=== PATIENT | male | born 1945 | race Caucasian/White ===

== ENCOUNTER 2022-11-03 09:31 | Outpatient (CLI) | payer MEDICARE ==
[~2022-11-03 09:31] MED LIST: Iopamidol 300 61% 100 ML VIAL FS ONE
== END 2022-11-03 09:32 | disposition home or self-care (01) ==
LOC: CSHCT 09:31
PROVIDERS: ATTEND Family Medicine
DX: R05.3 Chronic cough (principal); R91.8 Other nonspecific abnormal finding of lung field
CPT/HCPCS: 71260; 82565; Q9967

== ENCOUNTER 2023-03-02 09:21 | Outpatient (CLI) | payer MEDICARE ==
[2023-03-02] MEDS ORDERED: Iopamidol 300 61% 100 ML VIAL FS ONE (13:45)
== END 2023-03-02 09:22 | disposition home or self-care (01) ==
LOC: CSHCT 09:21
PROVIDERS: ATTEND Family Medicine
DX: R93.89 Abnormal findings on diagnostic imaging of other specified body structures (principal); N13.30 Unspecified hydronephrosis; J18.9 Pneumonia, unspecified organism; R91.1 Solitary pulmonary nodule; N28.1 Cyst of kidney, acquired
CPT/HCPCS: 71260; 74178; 82565; Q9967

== ENCOUNTER 2024-01-20 09:34 | Outpatient (CLI) | payer MEDICARE ==
[~2024-01-20 09:34] MED LIST changes: -Iopamidol 300 61% 100 ML VIAL FS ONE; +Iopamidol 370 76% 100 ML VIAL ONE
== END 2024-01-20 09:35 | disposition home or self-care (01) ==
LOC: CSHCT 09:34
PROVIDERS: ATTEND Family Medicine
DX: R93.89 Abnormal findings on diagnostic imaging of other specified body structures (principal); R91.8 Other nonspecific abnormal finding of lung field
CPT/HCPCS: 36415; 71270; 82565